=== PATIENT | male | born 1995 | race Caucasian/White ===

== ENCOUNTER → 2017-03-03 | Outpatient (CLI) | payer OTHER | END | disposition home or self-care (01) | LOC: PETCFH 10:38 | PROVIDERS: ATTEND Internal Medicine Gastroenterology | DX: K30 Functional dyspepsia (principal) | CPT/HCPCS: 78264; A9541 ==

== ENCOUNTER 2017-08-11 14:32 | Day surgery (SDC) | payer OTHER ==
[~2017-08-11] VITALS: Ht 185.4 cm; Wt 77.0 kg
[2017-08-11] MEDS ORDERED: MORPHINE SULFATE 4 MG/ML, 1ML IVPush PRN ×2 (16:00→21:30)
[2017-08-11] MEDS ORDERED: SODIUM CHLORIDE FLUSH 10ML SYR IVF ONE (16:00)
[2017-08-11] MEDS ORDERED: SODIUM CHLORIDE 0.9% 1,000ML IVBOLUS ONE (16:00)
[2017-08-11] MEDS ORDERED: ONDANSETRON 2MG/ML, 2ML IVPush ONE (16:00)
[2017-08-11 16:03] LABS: HEMATOCRIT 47.3 % (39.2-51.8); WHITE BLOOD COUNT 17.1 x10^3/uL (3.4-10)
[2017-08-11] MEDS ORDERED: morphine SULFATE 10 MG/ML, 1ML ONE (16:06)
[2017-08-11] MEDS ORDERED: ONDANSETRON 2MG/ML, 2ML ONE ×2 (16:06→18:42)
[2017-08-11] MEDS ORDERED: OMNIPAQUE 350 MG/ML, 100ML BOTTLE ONE (16:42)
[2017-08-11 17:03] VITALS: BP 118/82
[2017-08-11] MEDS ORDERED: CEFOTETAN PMX 1GM/50ML 50 ML ONE (17:06)
[2017-08-11] MEDS ORDERED: NORT25CA PO (17:09)
[2017-08-11] MEDS ORDERED: CEFOTETAN PMX 1GM/50ML 50 ML IV ONE (17:30)
[2017-08-11] MEDS ORDERED: SODIUM CHLORIDE 0.9% 1,000 ML IV ONE (18:00)
[2017-08-11] MEDS ORDERED: ONDANSETRON 2MG/ML, 2ML IVPush PRN ×3 (18:00→21:30)
[2017-08-11] MEDS ORDERED: HYDROmorphone 1 MG/ML, 1ML IVPush PRN (18:00)
[2017-08-11] MEDS ORDERED: MIDAZOLAM 1 MG/ML, 2ML ONE ×2 (18:27→18:42)
[2017-08-11] MEDS ORDERED: FENTANYL PF 250 MCG/5ML ONE (18:27)
[2017-08-11] MEDS ORDERED: BUPIVACAINE/PF 0.5% ONE (18:30)
[2017-08-11] MEDS ORDERED: EPINEPHRINE 1 MG/ML, 1ML ONE (18:30)
[2017-08-11] MEDS ORDERED: KETOROLAC 30 MG/1 ML ONE (18:42)
[2017-08-11] MEDS ORDERED: SUCCINYLCHOLINE 20 MG/ML, 10ML ONE (18:42)
[2017-08-11] MEDS ORDERED: DEXAMETHASONE 4 MG/ML, 1ML ONE (18:42)
[2017-08-11] MEDS ORDERED: PROPOFOL 10 MG/ML, 20ML ONE (18:42)
[2017-08-11] MEDS ORDERED: ROCURONIUM 10 MG/ML,10ML ONE (18:42)
[2017-08-11] MEDS ORDERED: NEOSTIGMINE 1 MG/ML, 10ML ONE (18:42)
[2017-08-11] MEDS ORDERED: FENTANYL PF 100 MCG/2ML ONE ×2 (18:42→19:27)
[2017-08-11] MEDS ORDERED: GLYCOPYRROLATE 0.2MG/1ML, 5ML ONE (18:42)
[2017-08-11] MEDS ORDERED: SODIUM CHLORIDE FLUSH 10ML SYR IVF PRN (19:00)
[2017-08-11] MEDS ORDERED: BUPIVACAINE/PF-EPI 0.5% 1:200K IM ONE (19:06)
[2017-08-11] MEDS ORDERED: OXYcodone 5 MG/5 ML ORAL.SOL UDC ONE (19:27)
[2017-08-11] MEDS ORDERED: ACETAMINOPHEN 650 MG/20.3 ML UDC ONE (19:27)
[2017-08-11] MEDS: FENTANYL PF 100 MCG/2ML IV PRN ×2 (19:30→19:50)
[2017-08-11] MEDS ORDERED: HYDROmorphone 1 MG/ML, 1ML IV PRN (19:30)
[2017-08-11] MEDS ORDERED: EPHEDRINE 50 MG/ML, 1ML IVPush PRN (19:30)
[2017-08-11] MEDS ORDERED: LABETALOL 5MG/ML, 20ML IV PRN (19:30)
[2017-08-11] MEDS ORDERED: hydrALAzine 20 MG/ML, 1ML IV PRN (19:30)
[2017-08-11] MEDS ORDERED: MEPERIDINE/PF 25MG/0.5ML IVPush PRN (19:30)
[2017-08-11] MEDS ORDERED: PROMETHAZINE 25 MG/ML, 1ML IV PRN (19:30)
[2017-08-11] MEDS ORDERED: HYDROcodone/APAP 7.5-325MG/15ML UDC PO PRN (19:30)
[2017-08-11] MEDS ORDERED: METOPROLOL 1 MG/ML, 5ML IV PRN (19:30)
[2017-08-11] MEDS ORDERED: OXYcodone 5 MG/5 ML ORAL.SOL UDC PO PRN (19:30)
[2017-08-11] MEDS ORDERED: ACETAMINOPHEN 325 MG TABLET PO PRN (19:30)
[2017-08-11] MEDS ORDERED: ALBUTEROL SULFATE 2.5 MG/3 ML NPPB PRN (19:30)
[2017-08-11] MEDS ORDERED: DIAZEPAM 5 MG/ML, 2ML IVPush PRN (19:30)
[2017-08-11] MEDS ORDERED: MIDAZOLAM 1 MG/ML, 2ML IV PRN (19:30)
[2017-08-11] MEDS ORDERED: HYDROmorphone 2 MG/ML, 1ML ONE (20:04)
[2017-08-11] MEDS ORDERED: LACTATED RINGERS 1,000 ML IV SCH (21:30)
[2017-08-11] MEDS ORDERED: HYDROcodone/APAP 5/325 TABLET PO PRN (21:30)
[2017-08-11] MEDS ORDERED: KETOROLAC 30 MG/1 ML IV PRN (21:30)
== END 2017-08-11 22:45 ==
LOC: OR 19:06 → UNDOADMIN 19:07 → SDC 19:07 → EDIP 19:07 → 4NOR 21:01 → EDIP 21:01 → SDC 22:45 → UNDODISIN 22:45
PROVIDERS: ATTEND Surgery
DX: K35.80 Unspecified acute appendicitis (principal)
CPT/HCPCS: 36415; 74177; 81003; 85025; 88304; J0171; J1100; J1170; J1885; J2250; J2405; J2704; J2710; J3010; J3490; Q9967; J0330; J7030; S0074